=== PATIENT | female | born 1980 | race Caucasian/White ===

== ENCOUNTER 2017-07-19 14:31 | Emergency (ER) | payer OTHER ==
--- NOTE | 2017-07-19 14:42 | PDOC ---
History of Present Illness - General Chief Complaint: Pain Stated Complaint: LUMP IN LOWER BACK Time Seen by Provider: 07/19/17 14:41 History Source: Patient - History of Present Illness Initial Comments: Previously healthy 36 year old female presenting with back pain and a lump in her lower back for the past two months that has been gradually worsening. She states that she felt a small lump in her lower back 2 months ago that has become gradually more painful since that. Denies any focal neurological deficit , numbness, tingling, or bowel/ bladder incontinence. She is able to ambulate with just some minor general pain in her lower back. The pain is sharp and achy and non radiating. worse with movement and better with rest. Denies fevers, chills, nausea, vomiting, diarrhea, or other sick symptoms. 07/19/17 18:10 Past History - Past Medical History Allergies/Adverse Reactions: Allergies Allergy/AdvReac Type Severity Reaction Status Date / Time No Known Allergies Allergy Verified 01/17/15 13:55 Home Medications: Ambulatory Orders Cephalexin [Keflex] 500 mg PO BID #10 capsule 01/17/15 - Suicide/Smoking/Psychosocial Hx Smoking History: Never smoked Hx Alcohol Use: No Substance Use Type: None Review of Systems - Review of Systems Constitutional: No: Chills, Diaphoresis, Weakness HEENTM: No: Blurred Vision, Double Vision Respiratory: No: Cough, Shortness of Breath, Wheezing Cardiac (ROS): No: Chest Pain, Edema ABD/GI: No: Diarrhea, Nausea, Poor Appetite, Vomiting : No: Dysuria, Discharge Musculoskeletal: Yes: Back Pain. No: Joint Pain, Muscle Pain, Muscle Weakness Neurological: No: Headache, Numbness, Tingling *Physical Exam - Physical Exam General Appearance: Yes: Nourished, Appropriately Dressed. No: Apparent Distress HEENT: positive: EOMI, EARNESTINE, Normal ENT Inspection, Normal Voice Neck: positive: Trachea midline, Normal Thyroid, Supple. negative: Tender, Rigid Respiratory/Chest: positive: Lungs Clear, Normal Breath Sounds. negative: Chest Tender, Respiratory Distress, Accessory Muscle Use Cardiovascular: positive: Regular Rhythm, Regular Rate, S1, S2. negative: Edema , Murmur Gastrointestinal/Abdominal: positive: Normal Bowel Sounds, Flat, Soft. negative : Tender Musculoskeletal: positive: Other (Small 1 cm b 0.5 cm rubbery mobile subcutaneous nodule over the L5 vertberal body. No skin changes. Slightly tender to palpation.). negative: Normal Inspection, CVA Tenderness Extremity: positive: Normal Inspection, Normal Range of Motion Integumentary: positive: Normal Color, Dry, Warm, Swelling (Per above). 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 Not invading any local bony process. 07/19/17 18:43 Medical Decision Making - Medical Decision Making 36 year old previously healthy female with subcutaneous nodule not invading any bony processes confirmed on ultrasound to be 1.5 x 0.65 cm and vertebra without pathology on spinal film. This is most likely a lipoma vs. other subcutaneous cyst. She also admitted that she has had small benign cysts removed from her back in the past. She was discharged with dermatology follow up instructions to have the cyst evaluated further. 07/19/17 18:44 *DC/Admit/Observation/Transfer Diagnosis at time of Disposition: Cyst - Discharge Dispostion Disposition: HOME Condition at time of disposition: Improved Admit: No - Referrals Referrals: Marisel Rowell MD [Staff Physician] - - Patient Instructions Additional Instructions: We x rayed your back and didn't see any issue with the bones. We believe that you need to see a [employer] plant supervisor for your lump which we believe is only is in the tissue between your bones and your skin. Please follow up with Dr. 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 Please use ibuprofen or Tylenol for the pain.
[2017-07-19 14:52] VITALS: BP 123/85; PULSE 88; TEMP 100; BMI 24.6
--- NOTE | 2017-07-19 16:01 | PDOC ---
Attending Attestation - Resident Resident Name: Marcus Torres - ED Attending Attestation I have performed the following: I have examined & evaluated the patient, The case was reviewed & discussed with the resident, I agree w/resident's findings & plan, Exceptions are as noted - HPI HPI: 07/19/17 15:57 Healthy 36-year-old female presents with painful skin nodules for 2 months, increasing discomfort recently so presents for evaluation. No injury, never had discoloration or drainage, but notes positional discomfort and can palpate a nodule underneath her skin so she presents for evaluation. No neurological symptoms, no or GI symptoms. - Physicial Exam PE: 07/19/17 15:58 Triage temperature of 100, will repeat. No tachycardia, vitals normal otherwise Agree with exam, which is normal except for mobile 1-2 cm mobile subcutaneous nodule in the lumbar region, seems most uncomfortable when movements presses on the spinous process, otherwise there is no overlying skin lesion or erythema or ecchymosis. The midline spine is otherwise nontender and without gross deformity , the patient is neurologically completely intact. - Medical Decision Making 07/19/17 15:59 36-year-old healthy female with painful lumbar skin nodule, likely dermoid cyst with some local irritation on the vertebrae. No evidence of infection, temp incidentally 100. On bedside ultrasound, there is a visible and well-demarcated approximately 1.5 cm cutaneous skin cyst/nodule without clear fluid collection We'll check urine , will confirm no bony abnormalities with lumbar sacral spine film Patient has referral to dermatology, recommend follow-up for cyst removal. No indication for infectious/sepsis workup given isolated low-grade temp of 100.
== END 2017-07-19 17:40 | disposition home or self-care (01) ==
LOC: FER 14:31
DX: R22.2 Localized swelling, mass and lump, trunk (principal)
CPT/HCPCS: 72100-TC; 84703; 99281-25

== ENCOUNTER 2021-07-13 13:42 | Emergency (ER) | payer OTHER ==
[2021-07-13 14:15] VITALS: BP 135/94; PULSE 82; TEMP 99.1; BMI 24.7
== END 2021-07-13 15:01 | disposition home or self-care (01) ==
LOC: FER 13:42
PROC: 2W3AX1Z Immobilization of Right Upper Arm using Splint (ICD-10-PCS; principal; 2021-07-13)
DX: S42.401A Unspecified fracture of lower end of right humerus, initial encounter for closed fracture (principal); W01.0XXA Fall on same level from slipping, tripping and stumbling without subsequent striking against object, initial encounter
CPT/HCPCS: 73070-TC-RT-FY; 99283-25

== ENCOUNTER 2022-10-21 22:25 | Emergency (ER) | payer OTHER ==
[2022-10-21 22:33] VITALS: PULSE 89; RESP 18; TEMP 98.3; BMI 25.0
[2022-10-21] MEDS ORDERED: cloNIDine HCL 0.1 MG TABLET PO ONE (22:59)
[2022-10-21] MEDS ORDERED: ACETAMINOPHEN 500 MG TABLET (FP) PO ONE (23:01)
[2022-10-21] MEDS ORDERED: cloNIDine HCL 0.1 MG TABLET ONE (23:03)
[2022-10-21] MEDS ORDERED: ACETAMINOPHEN 500 MG TABLET (FP) ONE (23:03)
[2022-10-21 23:09] LABS: HEMATOCRIT 36.8 % (32.4-45.2); HEMOGLOBIN 12.7 G/dL (10.7-15.3); MCH 31.8 pg (25.7-33.7); MCHC 34.5 g/dl (32.0-36.0); MEAN CELL VOLUME 92.3 fl (80-96); MEAN PLT VOLUME 9.2 fl (7.5-11.1); PLATELET COUNT 100.5 10^3/uL (134-434); RBC 3.99 10^6/uL (3.60-5.2); RDW 14.9 % (11.6-15.6); WHITE BLOOD COUNT 5.1 10^3/uL (4.0-10.8)
[2022-10-21 23:22] LABS: ALBUMIN 3.8 g/dl (3.4-5.0); BILIRUBIN,TOTAL 0.5 mg/dl (0.2-1); CREATININE 0.8 mg/dl (0.55-1.3); TOT PROT 6.8 g/dl (6.4-8.2)
[2022-10-22 00:06] VITALS: BP 111/74
== END 2022-10-22 00:11 | disposition home or self-care (01) ==
LOC: FER 22:25
DX: I10 Essential (primary) hypertension (principal)
CPT/HCPCS: 36415; 80053; 82550; 84484; 85027; 93005; 99284-25

== ENCOUNTER 2023-01-30 00:11 | Emergency (ER) | payer OTHER ==
[2023-01-30 00:18] VITALS: BP 119/74; PULSE 82; RESP 16; TEMP 98.6; BMI 26.9
[2023-01-30] MEDS ORDERED: CEPHALEXIN MONOHYDRATE 500 MG CAPSULE (UD) PO ONE (01:09)
[2023-01-30] MEDS ORDERED: CEPHALEXIN MONOHYDRATE 500 MG CAPSULE (UD) ONE (01:12)
== END 2023-01-30 01:19 | disposition home or self-care (01) ==
LOC: FER 00:11
PROC: 0HQKXZZ Repair Right Lower Leg Skin, External Approach (ICD-10-PCS; principal; 2023-01-30)
PROC: 3E023GC Introduction of Other Therapeutic Substance into Muscle, Percutaneous Approach (ICD-10-PCS; 2023-01-30)
DX: S91.012A Laceration without foreign body, left ankle, initial encounter (principal); W26.8XXA Contact with other sharp object(s), not elsewhere classified, initial encounter; W22.8XXA Striking against or struck by other objects, initial encounter
CPT/HCPCS: 99284-25